=== PATIENT | female | born 1945 | race American Indian/Alaskan Native ===

== ENCOUNTER 2022-08-11 13:15 | Day surgery (SDC) | payer MEDICARE, BC ==
[2022-08-10 14:45] VITALS: BP 121/64
[~2022-08-11] VITALS: Ht 160 cm; Wt 67.8 kg
[2022-08-11] VITALS (8 sets, daily range): BP systolic 98–123; BP diastolic 61–69
[~2022-08-11 13:15] MED LIST: ASPI-1397 PO; ATOR20TA66 PO; CETI10TA14 PO; DABI150C PO; EMPA10TA PO; ESTR1TAB19 PO; FURO20TA4 PO; LISI5TAB22 PO; METF-517 PO; METO-395 PO; OXYB15TA19 PO; POTA-206 PO; THYR90TA12 PO
[2022-08-11] MEDS ORDERED: dextrose 50%-water 50ml dispensing syringe IV PRN ×2 (14:00)
[2022-08-11] MEDS ORDERED: MESSAGE TO PHARMACY PO ONE (14:00)
[2022-08-11] MEDS ORDERED: insulin Lispro (HumaLOG) vial - multi-dose SQ SCH (14:00)
[2022-08-11] MEDS ORDERED: normal saline 1,000 ML IV SCH (14:00)
[2022-08-11] MEDS ORDERED: DEXTROSE 15 GM of carb/4 tabs (each vial/BOTTLE has 4 tablets) PO PRN ×2 (14:00)
[2022-08-11] MEDS ORDERED: LORazepam 0.5 MG tablet PO PRN (14:00)
[2022-08-11] MEDS ORDERED: glucagon, human recombinant 1mg kit SUBCUT PRN (14:00)
[2022-08-11] MEDS ORDERED: SACU1TAB PO (14:07)
[2022-08-11] MEDS ORDERED: SPIR25TA5 (14:07)
[2022-08-11] MEDS ORDERED: FURO-150 PO (14:15)
[2022-08-11] MEDS ORDERED: METO-539 PO (14:15)
[2022-08-11] MEDS ORDERED: ATOR20TA PO (14:15)
[2022-08-11] MEDS ORDERED: EMPA10TA PO (14:15)
[2022-08-11] MEDS ORDERED: POTA-206 PO (14:15)
[2022-08-11] MEDS ORDERED: DABI150C PO (14:15)
[2022-08-11] MEDS ORDERED: fentaNYL/PF 50MCG/1 ML 2ML syringe ONE (14:52)
[2022-08-11] MEDS ORDERED: midazolam 1 mg/ML 2ml injection ONE (14:52)
[2022-08-11] MEDS ORDERED: heparin 1,000unit/ml 10ml vial 0 ML ONE (14:52)
[2022-08-11] MEDS ORDERED: iohexol 350MG/ML 100ml bottle IV ONE (14:52)
[2022-08-11] MEDS ORDERED: LIDOcaine 1% 30ml preserv. free vial ONE (14:52)
[2022-08-11] MEDS ORDERED: heparin 1,000 UNITS/NS 500ml 500 ML ONE (15:36)
[2022-08-11] MEDS ORDERED: clopidogrel 75mg tablet ONE (15:57)
[2022-08-11] MEDS ORDERED: insulin glargine (Lantus) pen - multi-dose SQ SCH (21:00)
[2022-08-12 06:08] LABS: ISTAT Hct MIX 47 %PCV (35-45); ISTAT O2 SATURATION MIX VENOUS 69 % (60-80); ISTAT SOURCE VEN
== END 2022-08-11 18:15 | disposition home or self-care (01) ==
LOC: SSTAY O 13:15
PROVIDERS: ATTEND Student in an Organized Health Care Education/Training Program
DX: I50.9 Heart failure, unspecified (principal); Z79.899 Other long term (current) drug therapy; I48.91 Unspecified atrial fibrillation; Z85.820 Personal history of malignant melanoma of skin; Z98.890 Other specified postprocedural states
CPT/HCPCS: 33289; 82803; 82948; 85014; 93005; 99152; 99153; C1751; C1769; C1894; C2624; J1644; J1815; J2250; J3010; J3490; J7030; Q9967; A4620; A6258

== ENCOUNTER 2022-10-06 11:06 | Day surgery (SDC) | payer MEDICARE, BC ==
[~2022-10-06] VITALS: Ht 160 cm; Wt 64.7 kg
[2022-10-06] VITALS (9 sets, daily range): BP systolic 96–123; BP diastolic 56–72
[~2022-10-06 11:06] MED LIST changes: +ATOR20TA PO; -ATOR20TA66 PO; -CETI10TA14 PO; +FURO-150 PO; -FURO20TA4 PO; -LISI5TAB22 PO; -METO-395 PO; +METO-539 PO; +SACU1TAB PO; +SPIR25TA5
[2022-10-06] MEDS ORDERED: normal saline 1000ml 1,000 ML IV SCH (11:25)
[2022-10-06] MEDS ORDERED: MIDAZolam 1mg/ml 10ml vial IV ONE (11:25)
[2022-10-06] MEDS ORDERED: fentaNYL/PF 50MCG/1 ML 2ML syringe IV ONE (11:25)
[2022-10-06] MEDS ORDERED: FURO20TA4 (11:44)
[2022-10-06] MEDS ORDERED: OXYB10TA4 PO (11:44)
[2022-10-06] MEDS ORDERED: SACU1TAB7 PO (11:44)
[2022-10-06] MEDS ORDERED: AMIO200T61 PO (11:44)
[2022-10-06 12:24] LABS: BASOPHILS # (AUTO) 0.1 X10'3 (0-0.2); BASOPHILS % (AUTO) 1.4 % (0-1); EOSINOPHILS # (AUTO) 0.2 X10'3 (0-0.9); EOSINOPHILS % (AUTO) 2.3 % (0-6); HEMATOCRIT 44.7 % (35.0-45.0); HEMOGLOBIN 14.6 g/dl (12.0-16.0); LYMPHOCYTES # (AUTO) 1.8 X10'3 (1.1-4.8); LYMPHOCYTES % (AUTO) 22.1 % (21-51); MEAN CORPUSCULAR HEMOGLOBIN 31.2 PG (27.0-31.0); MEAN CORPUSCULAR HGB CONC 32.8 g/dL (33.0-36.5); MEAN CORPUSCULAR VOLUME 95.3 FL (78-98); MEAN PLATELET VOLUME 8.8 FL (7.4-10.4); MONOCYTES # (AUTO) 0.7 X10'3 (0-0.9); MONOCYTES % (AUTO) 8.6 % (2-12); NEUTROPHILS # (AUTO) 5.4 X10'3 (1.8-7.7); NEUTROPHILS % (AUTO) 65.6 % (42-75); PLATELET COUNT 300 X10'3 (140-440); RED BLOOD COUNT 4.69 X10'6 (4.20-5.60); RED CELL DISTRIBUTION WIDTH 13.2 % (11.5-14.5); WHITE BLOOD COUNT 8.3 X10'3 (4.5-11.0)
[2022-10-06 12:29] LABS: ALBUMIN 3.2 G/DL (3.4-5.0); ANION GAP 12 (8-16); BLOOD UREA NITROGEN 24 MG/DL (7-18); BUN/CREATININE RATIO 16.7 (6.6-38.0); CALCIUM 9.3 MG/DL (8.5-10.1); CHLORIDE 100 MMOL/L (99-107); CREATININE 1.44 MG/DL (0.40-0.90); GLUCOSE 118 MG/DL (70-104); POTASSIUM 4.2 MMOL/L (3.5-5.1); SODIUM 138 MMOL/L (135-145); TOTAL CARBON DIOXIDE 25.8 MMOL/L (24-32); eGFR 35 ML/MIN
[2022-10-06 12:32] LABS: APTT 46 SECONDS (22-32)
== END 2022-10-06 14:42 | disposition home or self-care (01) ==
LOC: SSTAY O 11:06
PROVIDERS: ATTEND Student in an Organized Health Care Education/Training Program
DX: I48.91 Unspecified atrial fibrillation (principal); I11.0 Hypertensive heart disease with heart failure; I50.9 Heart failure, unspecified; E11.9 Type 2 diabetes mellitus without complications; E03.9 Hypothyroidism, unspecified; I42.9 Cardiomyopathy, unspecified; Z79.899 Other long term (current) drug therapy; Z98.890 Other specified postprocedural states
CPT/HCPCS: 36415; 80048; 82948; 85025; 85610; 85730; 92960; 93005; J2250; J3010; J7030; A4620